=== PATIENT | female | born 1990 | race Caucasian/White ===

== ENCOUNTER 2019-08-09 21:29 | Emergency (ER) | payer BC, SELFPAY ==
[2019-08-09 21:30] VITALS: BP 142/73; PULSE 125; RESP 18; TEMP 37; O2SAT 96; BMI 33.2
--- NOTE | 2019-08-09 22:40 | RAD_ITS ---
STUDY: X-RAY CHEST REASON FOR EXAM: Female, 29 years old. Fever and cough TECHNIQUE: Frontal and lateral views of the chest. COMPARISON: None. FINDINGS: The lungs are clear and expanded. There is no demonstrated pleural abnormality. Normal size heart. Normal mediastinum and michelle. Normal visualized pulmonary arteries. Normal visualized aortic arch and descending thoracic aorta. Normal visualized thoracic spine. Calcified granuloma overlies the T8 vertebral body on the lateral view. Normal visualized ribs, clavicles, and shoulders. There is no demonstrated abnormality of the visualized soft tissue structures of the upper abdomen. RAD/Chest PA and Lateral IMPRESSION: No acute chest disease. Electronically Signed: Michael Valladares MD at 22:58 EST , Service support ,
[2019-08-09 22:44] LABS: Mucous, Urine 0 SEEN /hpf (<or=2+); Red Blood Cells-Urine 0 SEEN /hpf (0-5)
[2019-08-09 22:46] LABS: Absolute Neutrophil Count 6.7 X10^3/uL (2.0-7.7); Basophil# 0.01 X10^3/uL; Basophil% 0.1 % (0-1); Color, Urine Yellow (Yellow); Eosinophil# 0.02 X10^3/uL; Eosinophils% 0.3 % (0-5); Glucose, Dipstick Normal (Normal); Hematocrit 38.3 % (37-47); Hemoglobin 12.4 g/dL (12.0-15.0); Ketone-Dipstick 5 mg/dl (Negative); Leukocyte Esterase-Dipstick 500 /ul (Negative); Lymphocyte % 8.8 % (19-41); Mean Corp Hgb Conc 32.4 g/dL (32-36); Mean Corpuscular Hgb 28.4 pg (27.0-32.0); Mean Corpuscular Volume 87.6 fL (81-99); Mean Platelet Vol. 10.5 fl (6.2-12.0); Monocyte# 0.54 X10^3/uL; Monocyte% 6.8 % (0-10); NRBC Flagged by Analyzer 0 % (0-5); Neutrophil # 6.71 X10^3/uL (2.7-7.7); Neutrophil % 83.7 % (47-70); Nitrite-Dipstick Negative (Negative); Occult Blood-Urine 10 /ul (Negative); Platelet Count 223 K/mm3 (150-450); Protein-Dipstick Negative (Negative); RBC Distribution Width CV 13.2 % (11.6-14.6); RBC Distribution Width SD 42.3 fl (35.1-43.9); Red Blood Count 4.37 M/mm3 (4.2-5.4); Urine Bilirubin Dipstick Negative (Negative); Urine Clarity Sl. Cloudy (Clear); Urine Urobilinogen Normal (Normal)
[2019-08-09 22:53] LABS: Bacteria RARE /hpf (None Seen); Squamous Epithelial Cells - UA 0-5 SEEN /hpf (5-10); White Blood Cells 0-5 SEEN /hpf (0-5)
[2019-08-09] MEDS: 0.9% Normal Saline 1,000 ML 1000 ML IV (22:53)
[2019-08-09 22:55] LABS: Internal QC Validated? YES +Cl - CLEAR BKGD; Pregnancy, Serum, hCG Quali. NEGATIVE Negative
--- NOTE | 2019-08-09 22:55 | ED.VISSUMM ---
- ER Visit Summary Date of Service: 08/09/19 Chief Complaint: Fever History of Present Illness: The patient is a 29 F who presents with a fever that began today. Patient states her fever at home was up to 104.7. Patient states she has been having sharp pain in her chest. Patient also admits to some pain in her lower abdomen and pelvis. Patient states her pain improves with a heating pad. Patient states nothing makes her pain worse. Patient states she has been also having a cough with some yellow sputum. Patient also admits to a sore throat and a headache. Physical Examination: Vital signs are stable except for mild tachycardia of 125. Patient is afebrile. Patient is in no acute distress. Oral mucosa is pink and moist. Neck is supple. Trachea is midline. There is no JVD. Heart was regular and tachycardic. Lungs are clear and equal bilaterally. Abdomen is soft and nontender. Cranial nerves II through XII are intact. There are no focal motor or sensory deficits noted. Test Results: CBC, comprehensive metabolic profile, serum hCG, and urinalysis were obtained and were all essentially within normal limits. PA and lateral chest x-ray was obtained. There is no acute cardiopulmonary process. This was interpreted by the radiologist and myself. Emergency Department Course and Treatment: Patient is feeling better on reevaluation. Patient was instructed to drink plenty of fluids. Patient was instructed to continue Tylenol or ibuprofen as needed for pain or fever. Patient was instructed to follow-up with her primary care physician in 5 to 7 days. Patient understood and was agreeable with the plan. All questions were answered. Disposition: Discharge home Impression: Acute febrile illness This note was generated with [employer] dictation software. It may contain incorrect words, spelling, and punctuation that were not noted in review of the chart prior to signing ED Disposition - Plan for ED Patient: Disposition: Home or Assisted Living Diagnosis: Acute febrile illness Instructions: VIRAL SYNDROME (Adult) Referrals: Care Physician,No Primary [Primary Care Provider] - 5-7 Days
[2019-08-09 23:02] LABS: ALB/GLOB Ratio 1.1 RATIO (0.9-2.4); AST(SGOT) 9 U/L (15-37); Alanine Aminotransfer ALT/SGPT 20 U/L (13-56); Albumin, Serum 3.7 g/dL (3.2-5.0); Alkaline Phosphatase 68 U/L (45-117); Anion Gap 5 (5-15); BUN 11 mg/dL (7-18); BUN/Creat Ratio 13.7 RATIO (10-20); Calcium,Total 8.8 mg/dL (8.5-10.1); Chloride 110 mmol/L (98-107); EST Glomerular Filtration Rate 90 mL/min (>60); Est Glom Filt Rate - Afr Amer 108 mL/min (>60); Estimated Creatinine Clearance 97.13 ml/min; Globulin 3.5 g/dL (2.2-4.2); Glucose 101 mg/dL (74-106); Potassium 3.5 mmol/L (3.5-5.1); Protein, Total 7.2 g/dL (6.4-8.2); Sodium Level 139 mmol/L (136-145)
[2019-08-09 23:18] VITALS: PULSE 91; RESP 18; TEMP 37; O2SAT 96
== END 2019-08-09 23:18 | disposition home or self-care (01) ==
PROVIDERS: Emergency Provider Emergency Medicine
DX: R50.9 Fever, unspecified (principal); R07.9 Chest pain, unspecified; R10.30 Lower abdominal pain, unspecified; R10.2 Pelvic and perineal pain; R05 Cough; R51 Headache; E66.9 Obesity, unspecified; Z72.0 Tobacco use
CPT/HCPCS: 71046; 80053; 81001; 84703; 85025; 99284; J7030; A4216